=== PATIENT | male | born 1975 | race African-American/Black ===

== ENCOUNTER 2017-04-01 16:13 | Emergency (ER) | payer OTHER ==
[~2017-04-01] VITALS: Ht 182.9 cm; Wt 89.2 kg
[2017-04-01 16:25] VITALS: TEMP 36.9; Ht 182.9 cm; Wt 89.2 kg
[2017-04-01] MEDS ORDERED: CEFTRIAXONE SOD INJ 250 MG/ML VIAL IM ONE (17:00)
[2017-04-01] MEDS ORDERED: AZITHROMYCIN 250 MG TAB PO ONE (17:00)
[2017-04-01] MEDS ORDERED: CEFTRIAXONE SOD INJ 250 MG in SYRINGE 0 ML IM ONE (17:00)
[2017-04-01 18:39] VITALS: BP 157/95; PULSE 78; O2SAT 99
--- NOTE | 2017-04-01 19:15 | EMERGENCY ROOM VISIT NOTE ---
History First contact with patient: 16:33 Chief Complaint: STD MALE Stated Complaint: NEED STD TEST Nursing Triage Summary: pt states he was with a partner who was dx with deana one month ago had an unprotected encounter three days later had a burning took ecaneisia resolving symptoms , pt reports no change in appearance of shaft or scrotum denies drip or burning History of Present Illness The patient is a 42 year old male who presents to the Emergency Room with complaints of exposure to gonorrhea. The patient is sexually active with a single partner who was diagnosed 3 days ago with a gonorrheal infection. The patient does report having on and off burning at the end of urination for the past 2 months. He has been active with this partner over the past 3 months. The patient does not report urethral drainage or discharge. No lesions or testicular pain. He is current discomfort a 0/10. Review of Systems More than 10 systems were reviewed and otherwise negative with the exception of history of present illness. Past Medical/Surgical History No chronic medical disease Family History No pertinent family history Social History Smoking Status: Never Smoker Current/Historical Medications No Active Prescriptions or Reported Meds Physical Exam Vital Signs Date Time Temp Pulse Resp B/P (MAP) Pulse Ox O2 Delivery O2 Flow Rate FiO2 04/01/17 18:39 78 16 157/95 99 04/01/17 16:25 36.9 68 18 155/83 99 Room Air Physical Exam VITALS: Vitals are noted on the nurse's note and reviewed by myself. Vital signs stable. GENERAL: Well-developed, well-nourished, black male, who is in no acute distress and resting comfortably. Patient is cooperative with the examination. HEART: Regular rate and rhythm without murmurs gallops or rubs. LUNGS: Clear to auscultation bilaterally without wheezes, rales or rhonchi. No retractions or accessory muscle use. ABDOMEN: Positive normal bowel sounds x 4. Soft, nontender, without masses or organomegaly. No guarding or rebound tenderness no inguinal tenderness. : Normal-appearing external genitalia with circumcised phallus. No testicular tenderness or lesions. No urethral drainage. Medical Decision & Procedures Laboratory Results Test 04/01/17 16:50 Medications Administered Medications (Trade) Dose Ordered Sig/Paola Route Start Time Stop Time Status Last Admin Dose Admin Azithromycin (Zithromax Tab) 1,000 mg NOW ONCE PO 04/01/17 17:00 04/01/17 17:01 DC 04/01/17 17:13 1,000 MG Ceftriaxone Sodium 250 mg/ Syringe 1 ml @ 0 mls/min NOW ONCE IM 04/01/17 17:00 04/01/17 17:15 DC 04/01/17 17:00 250 MLS/MIN ED Course Physical exam and history were performed. Nursing notes, EMR, and Medication List were personally reviewed. Patient appears to have a sexual contact that was diagnosed with gonorrhea infection a few days ago. The patient is essentially asymptomatic at this time. A urethral swab was performed and sent to the lab. The patient was given IM Rocephin and oral Zithromax here in the department. He is to follow with his primary care physician for further management. He is otherwise invited the ER with any new, worsening, or concerning symptoms. The chart was completed utilizing [employer] Voice Recognition Software. Grammatical errors, random word insertions, pronoun errors, and incomplete sentences are an occasional consequence of this system due to software limitations, ambient noise, and hardware issues. Any formal questions or concerns about the content, text, or information contained within the body of this dictation should be directly addressed to the provider for clarification. . Medical Decision Differential diagnosis includes, but is not limited to: STD exposure, UTI, and others Impression Primary Impression: STD exposure Departure Information Dispostion Home / Self-Care Condition GOOD Prescriptions No Active Prescriptions or Reported Meds Forms HOME CARE DOCUMENTATION FORM, IMPORTANT VISIT INFORMATION Patient Instructions My [facility], ED STD Male Treated Additional Instructions You were seen and evaluated today on an emergency basis only. This is not a substitute for, or an effort to provide, complete comprehensive medical care. It is not possible to recognize and treat all injuries or illnesses in a single emergency department visit. For this reason it is recommended that you followup with your primary care physician with any ongoing or persistent symptoms. Avoid intercourse for 48-72 hours to allow treatment to work appropriately. Cultures should be ready in 2-3 days. You are welcome to return to the emergency department anytime with new, worsening, or concerning symptoms.
== END 2017-04-01 18:41 | disposition home or self-care (01) ==
LOC: C.EDB 16:15
DX: Z20.2 Contact with and (suspected) exposure to infections with a predominantly sexual mode of transmission (principal)